=== PATIENT | female | born 1985 | race Caucasian/White ===

== ENCOUNTER 2022-02-15 09:42 | Day surgery (SDC) | payer OTHER ==
[2022-02-14 10:57] VITALS: BMI 43.2
[~2022-02-15 09:42] MED LIST: LACTATED RINGERS 1,000 ML IV SCH; LIDOCAINE 1% (10MG/ML) FOR IV START INTRADERMA PRN
[2022-02-15 10:29] VITALS: TEMP 97.9
--- NOTE | 2022-02-15 11:06 | P.GSHP ---
History of Present Illness H&P Date: 02/15/22 Chief Complaint: GERD This a 36-year-old female who presents today for EGD. Patient's issues with GERD. Past Medical History Past Medical History: COPD History of Any Multi-Drug Resistant Organisms: None Reported Past Surgical History: Section, Tubal Ligation Past Anesthesia/Blood Transfusion Reactions: No Reported Reaction Past Psychological History: No Psychological Hx Reported Smoking Status: Current every day smoker Past Alcohol Use History: None Reported Additional Past Alcohol Use History / Comment(s): STARTED SMOKING AT AGE 18 SMOKES 1PPD Past Drug Use History: None Reported - Past Family History Mother Family Medical History: No Reported History Medications and Allergies Home Medications Medication Instructions Recorded Confirmed Type Albuterol Inhaler [Ventolin Hfa 1 - 2 puff INHALATION Q6H PRN 02/14/22 02/14/22 History Inhaler] Fluticasone Propion/Salmeterol 1 puff INHALATION BID 02/14/22 02/14/22 History [Advair Hfa 115-21 Mcg Inhaler] Allergies Allergy/AdvReac Type Severity Reaction Status Date / Time sulfamethoxazole Allergy Severe Swelling Verified 02/14/22 10:32 [From Bactrim] OF THROAT , SHORTNESS OF BREATH trimethoprim [From Bactrim] Allergy Severe Swelling Verified 02/14/22 10:32 OF THROAT , SHORTNESS OF BREATH Surgical - Exam Vital Signs Temp Pulse Resp BP Pulse Ox 97.9 F 82 20 130/83 96 02/15/22 10:27 02/15/22 10:27 02/15/22 10:27 02/15/22 10:27 02/15/22 10:27 - General well developed, well nourished, no distress - Eyes PERRL - ENT normal pinna - Neck no masses - Respiratory normal expansion - Cardiovascular Rhythm: regular - Abdomen Abdomen: soft, non tender Assessment and Plan Assessment: GERD. We'll perform EGD.
[2022-02-15] MEDS ORDERED: MIDAZOLAM 2 MG/2 ML VIAL ONE (11:09)
[2022-02-15] MEDS ORDERED: PROPOFOL 10 MG/ML 20 ML VIAL IV ONE (11:09)
[2022-02-15] MEDS ORDERED: LIDOCAINE 2% INJ 20 MG/ML (2 ML VIAL) ONE (11:09)
--- NOTE | 2022-02-15 11:19 | P.OP ---
Date of Procedure: 02/15/22 Preoperative Diagnosis: GERD Postoperative Diagnosis: Antral gastritis Mild esophagitis Small sliding hiatal hernia Procedure(s) Performed: EGD Anesthesia: MAC Surgeon: Kali Simeon Pathology: other (Stomach, esophagus) Condition: stable Disposition: PACU Description of Procedure: The patient's placed on the endoscopy table in the lateral position. She received IV sedation. The gastro-/oropharynx passed into the esophagus and into the stomach. No blood placed through the pylorus. The first and second portion of the duodenum appeared normal. Scope summer back the antrum this was mildly inflamed. A biopsies performed. The scope was she'll flexed and remainder the stomach appeared normal. There was a small sliding hiatal hernia. The GE junction was at 40 cm per the distal esophagus was mildly inflamed. A biopsies performed. The proximal esophagus appeared normal. Scope withdrawn for patient.
[2022-02-15 11:33] VITALS: RESP 18
[2022-02-15 11:53] VITALS: BP 114/79; PULSE 72
== END 2022-02-15 12:30 | disposition home or self-care (01) ==
LOC: ORWHC2ENDO 09:42
PROVIDERS: ATTEND Surgery
DX: K29.50 Unspecified chronic gastritis without bleeding (principal); K21.00 Gastro-esophageal reflux disease with esophagitis, without bleeding; K44.9 Diaphragmatic hernia without obstruction or gangrene; J44.9 Chronic obstructive pulmonary disease, unspecified; Z98.891 History of uterine scar from previous surgery; Z98.51 Tubal ligation status; F17.210 Nicotine dependence, cigarettes, uncomplicated; Z79.899 Other long term (current) drug therapy; Z88.2 Allergy status to sulfonamides
CPT/HCPCS: 88305; 84703; 43239; J2250; J2704; J2001

== ENCOUNTER → 2022-03-01 | Outpatient (CLI) | payer OTHER ==
--- NOTE | 2022-03-01 11:11 | NM ---
EXAMINATION TYPE: NM hepatobiliary w CCK DATE OF EXAM: 03/01/2022 COMPARISON: NONE HISTORY: 36-year-old female R52, pain TECHNIQUE: After the intravenous administration of 4.3 mCi Tc 99m Mebrofenin hepatobiliary scintigrap hy is performed. Immediate images post injection. FINDINGS: There is satisfactory initial accumulation of tracer by the liver. The gallbladder is visualized wit hin 6 minutes. The small bowel activity is noted within 10 minutes. At one hour CCK was administere d, patient was injected with 2.4 mcg of Kinevac, and gallbladder ejection fraction is calculated at 2 9 %, diminished. IMPRESSION: 1. No scintigraphic evidence for acute cholecystitis. 2. Diminished gallbladder ejection fraction of 29% may be seen with chronic cholecystitis or biliary dyskinesia. Clinically correlate.
== END | disposition home or self-care (01) ==
LOC: RADNMMAIN 06:29
PROVIDERS: ATTEND Surgery
DX: K21.9 Gastro-esophageal reflux disease without esophagitis (principal); R10.13 Epigastric pain
CPT/HCPCS: 78227; A9537

== ENCOUNTER 2022-03-16 06:19 | Day surgery (SDC) | payer OTHER ==
[2022-03-14 09:57] VITALS: BMI 42.9
[~2022-03-16 06:19] MED LIST changes: +DEXAMETHASONE SOD PHOSPHATE 4 MG/ML 1 ML VIAL IV ONE; +MIDAZOLAM 2 MG/2 ML VIAL IV PRN; +ONDANSETRON 4 MG/2 ML VIAL IVP ONE
[2022-03-16] MEDS ORDERED: HEPARIN SODIUM,PORCINE/PF 5,000 UNIT/0.5 ML SYRINGE SQ ONE (07:08)
[2022-03-16] MEDS ORDERED: PROPOFOL 10 MG/ML 20 ML VIAL IV ONE (07:37)
[2022-03-16] MEDS ORDERED: GLYCOPYRROLATE 0.2 MG/ML 2 ML VIAL ONE (07:37)
[2022-03-16] MEDS ORDERED: ROCURONIUM 10 MG/ML (5 ML VIAL) IV ONE (07:37)
[2022-03-16] MEDS ORDERED: LIDOCAINE 2% INJ 20 MG/ML (2 ML VIAL) ONE (07:37)
[2022-03-16] MEDS ORDERED: SUCCINYLCHOLINE CHLORIDE 200 MG/10 ML VIAL IV ONE (07:37)
[2022-03-16] MEDS ORDERED: ePHEDrine 50 MG/ML 1 ML VIAL ONE (07:37)
[2022-03-16] MEDS ORDERED: LIDOCAINE 4% LTA KIT (4 ML) TOPICAL ONE (07:37)
[2022-03-16] MEDS ORDERED: KETAMINE 10 MG/ML 20 ML VIAL ONE (07:37)
[2022-03-16] MEDS ORDERED: fentaNYL (PF) 50 MCG/ML 2 ML AMP ONE (07:37)
[2022-03-16] MEDS ORDERED: MIDAZOLAM 2 MG/2 ML VIAL ONE (07:37)
[2022-03-16] MEDS ORDERED: NEOSTIGMINE 1 MG/ML 10 ML VIAL ONE (07:37)
[2022-03-16] MEDS ORDERED: LIDOCAINE 1%-EPI 1:100,000 20 ML VIAL SQ ONE (07:58)
--- NOTE | 2022-03-16 08:21 | P.GSHP ---
History of Present Illness H&P Date: 03/16/22 Chief Complaint: Right upper quadrant pain This a 36-year-old female who's had complete right quadrant pain. Patient also had nausea. Patient's recent HIDA scan shows a diminished ejection fraction consistent with chronic cholecystitis biliary dyskinesia. She presents today for laparoscopic cholecystectomy Past Medical History Past Medical History: COPD History of Any Multi-Drug Resistant Organisms: None Reported Past Surgical History: Section, Tubal Ligation Past Anesthesia/Blood Transfusion Reactions: No Reported Reaction Past Psychological History: No Psychological Hx Reported Smoking Status: Current every day smoker Past Alcohol Use History: None Reported Additional Past Alcohol Use History / Comment(s): STARTED SMOKING AT AGE 18, SMOKES 1PPD. Past Drug Use History: None Reported - Past Family History Mother Family Medical History: No Reported History Medications and Allergies Home Medications Medication Instructions Recorded Confirmed Type Albuterol Inhaler [Ventolin Hfa 1 - 2 puff INHALATION Q6H PRN 02/14/22 03/16/22 History Inhaler] Fluticasone Propion/Salmeterol 1 puff INHALATION BID 02/14/22 03/16/22 History [Advair Hfa 115-21 Mcg Inhaler] Allergies Allergy/AdvReac Type Severity Reaction Status Date / Time sulfamethoxazole Allergy Severe Swelling Verified 03/16/22 06:46 [From Bactrim] OF THROAT , SHORTNESS OF BREATH trimethoprim [From Bactrim] Allergy Severe Swelling Verified 03/16/22 06:46 OF THROAT , SHORTNESS OF BREATH Surgical - Exam Vital Signs Temp Pulse Resp BP Pulse Ox 97.1 F L 86 16 116/74 97 03/16/22 06:58 03/16/22 06:58 03/16/22 06:58 03/16/22 06:58 03/16/22 06:58 - General well developed, well nourished, no distress - Eyes PERRL - ENT normal pinna - Neck no masses - Respiratory normal expansion - Cardiovascular Rhythm: regular - Abdomen Abdomen: soft, non tender Assessment and Plan Assessment: Chronic cholecystitis Biliary dysfunction We'll perform laparoscopic cholecystectomy
--- NOTE | 2022-03-16 08:22 | P.OP ---
Date of Procedure: 03/16/22 Preoperative Diagnosis: Cholecystitis Postoperative Diagnosis: Cholecystitis Procedure(s) Performed: Laparoscopic cholecystectomy Anesthesia: OMAYRA Surgeon: Kali Simeon Estimated Blood Loss (ml): 5 Pathology: other (Gallbladder) Condition: stable Disposition: PACU Description of Procedure: The patient was placed on the operating table. The patient received a general endotracheal tube anesthesia. The patients abdomen was prepped and draped in the usual sterile fashion. Through an infraumbilical stab incision, the fascia of the anterior abdominal wall was grasped with a pair of Kochers and then the Veress needle was placed in the peritoneal cavity. Position of the Veress needle was confirmed with positive drop test. The abdomen was then insufflated. After adequate insufflation, the 10 mm trocar was placed in the peritoneal cavity. Following this the laparoscope was placed in the peritoneal cavity. The patient was placed in the head-up, right side up position and then a 5 mm trocar was placed in the right lateral and right subcostal position under direct visualization. A 8 mm trocar was placed in the epigastric position. The gallbladder was grasped in the fundus and infundibulum. Traction on the gallbladder was placed in the lateral and the cephalad positions. The triangle of Calot was visualized.. The cystic duct was bluntly dissected until the union of the cystic duct and common bile duct was seen. A critical view of safety was achieved. The cystic duct was then divided and sealed with the Harmonic scissors. A PDS Endoloop was then placed throughout the cystic duct stump. The cystic artery divided and sealed with the Harmonic scissors. The gallbladder was then removed from the liver bed using Harmonic scissors. The gallbladder was then extracted through the epigastric port site. Operative field was checked for any bleeding spots and Harmonic scissors was used to coagulate the liver bed. The abdomen was irrigated. The trocars were removed. The skin was closed using interrupted 3-0 Vicryl suture. Dermabond dressing were applied. The patient tolerated the procedure well.
[2022-03-16 08:25] VITALS: TEMP 97
[2022-03-16] MEDS: HYDROmorphone 0.5 MG/0.5 ML SYRINGE IVP PRN ×2 (08:43→08:59)
[2022-03-16 09:21] VITALS: RESP 16
[2022-03-16] MEDS ORDERED: LACTATED RINGERS 1,000 ML IV ONE (09:21)
[2022-03-16] MEDS ORDERED: IBUPROFEN 200 MG TAB PO ONE (09:50)
[2022-03-16 10:35] VITALS: BP 103/67; PULSE 63
== END 2022-03-16 11:01 | disposition home or self-care (01) ==
LOC: OR 06:19
PROVIDERS: ATTEND Surgery
DX: K81.9 Cholecystitis, unspecified (principal); J44.9 Chronic obstructive pulmonary disease, unspecified; F17.210 Nicotine dependence, cigarettes, uncomplicated; Z98.891 History of uterine scar from previous surgery; Z98.51 Tubal ligation status; Z79.51 Long term (current) use of inhaled steroids; Z88.2 Allergy status to sulfonamides; Z88.1 Allergy status to other antibiotic agents
CPT/HCPCS: 47562; 81025; J2250; J0330; J1100; J2710; J0690; J2405; J3010; J2704; J1170; J1644; J2001; 88304